=== PATIENT | female | born 1970 | race Caucasian/White ===

== ENCOUNTER → 2018-07-19 | Outpatient (CLI) | payer OTHER ==
--- NOTE | 2018-07-19 11:51 | REPMRS ---
Patient History The patient states she had a clinical breast exam in 06/2018. Family history of ovarian cancer in paternal grandmother. 3D TOMOSYNTHESIS WAS PERFORMED. Digital Woman Screen Mammo: July 19, 2018 - Exam #: [id number] Bilateral CC and MLO view(s) were taken. Technologist: Cecilia Kirk, Technologist Prior study comparison: March 25, 2014, digital woman screen mammo performed at [facility]. June 18, 2011, bilateral bilat screen digital mammo, performed at [facility] ([facility] FINDINGS: The breast tissue is heterogeneously dense. This may lower the sensitivity of mammography. There has been no change in the appearance of the mammogram from the prior studies. There is a moderate amount of residual fibroglandular tissue which is fairly symmetric. There is no interval development of dominant mass, areas of architectural distortion, or clustered microcalcification typical of malignancy. Assessment: BI-RADS/ACR category 1 mammogram. Negative Mammogram. Recommendation Routine screening mammogram in 1 year (for women over age 40). This mammogram was interpreted with the aid of an FDA-approved computer-aided dectection system. Electronically Signed By: Demario Willson MD 07/19/18 [id number]
== END ==
LOC: M WHC 10:01
PROVIDERS: ATTEND Nurse Practitioner Women's Health
DX: Z12.31 Encounter for screening mammogram for malignant neoplasm of breast (principal)

== ENCOUNTER → 2018-07-19 | Outpatient (REF) | payer OTHER ==
[2018-07-21 14:26] LABS: HPV HYBRID CAPTURE II Negative (Negative)
== END ==
LOC: M SFHCWAGY 10:13
PROVIDERS: ATTEND Nurse Practitioner Women's Health
DX: Z12.4 Encounter for screening for malignant neoplasm of cervix (principal)
CPT/HCPCS: 87624; G0123

== ENCOUNTER → 2019-07-23 | Outpatient (CLI) | payer OTHER ==
--- NOTE | 2019-07-23 10:35 | REPMRS ---
Patient History The patient states she had a clinical breast exam in June 2019. Family history of ovarian cancer in paternal grandmother. Digital Woman Screen Mammo: July 23, 2019 - Exam #: [id number] Bilateral CC and MLO view(s) were taken. Technologist: Ela Mathew, Technologist Prior study comparison: July 19, 2018, bilateral digital woman screen mammo performed at [facility]. March 25, 2014, digital woman screen mammo performed at [facility]. June 18, 2011, bilateral bilat screen digital mammo, performed at [facility] ([facility] FINDINGS: There are scattered fibroglandular densities. There is a well circumscribed, 17 mm, nodular opacity in the upper outer quadrant of the right breast on today's mammography which merits further evaluation. This may contain fat suggesting a benign etiology. There has been no other change in the appearance of the mammogram from the prior studies. There is a mild amount of scattered fibroglandular density which is fairly symmetric. There is no other interval development of dominant mass, architectural distortion, or grouped microcalcification suggestive of malignancy. 3-D tomosynthesis shows no additional findings. Assessment: BI-RADS/ACR category 0 mammogram, Incomplete: Need additional imaging evaluation and/or prior mammograms for comparison. Recommendation Ultrasound and special view mammogram of the right breast. This patient's Lifetime Breast Cancer Risk is estimated at 9.0 %. This mammogram was interpreted with the aid of an FDA-approved computer-aided dectection system. Electronically Signed By: Ye Sahni MD 07/23/19 [id number]
== END ==
LOC: M WHC 08:45
PROVIDERS: ATTEND Nurse Practitioner Women's Health
DX: Z12.31 Encounter for screening mammogram for malignant neoplasm of breast (principal); Z80.41 Family history of malignant neoplasm of ovary; N63.11 Unspecified lump in the right breast, upper outer quadrant

== ENCOUNTER → 2019-07-23 | Outpatient (REF) | payer OTHER | LOC: M SFHCWAGY 16:52 | PROVIDERS: ATTEND Nurse Practitioner Women's Health | DX: Z12.4 Encounter for screening for malignant neoplasm of cervix (principal) ==

== ENCOUNTER → 2019-07-24 | Outpatient (CLI) | payer OTHER ==
--- NOTE | 2019-07-24 09:59 | REP ---
DIGITAL DIAGNOSTIC UNILATERAL RIGHT BREAST MAMMOGRAPHY WITH CAD AND FOCUSED RIGHT BREAST SONOGRAPHY: HISTORY: Screening mammography July 23, 2019 showed a nodular density in the upper outer quadrant for which diagnostic imaging was recommended. Comparison is also made with July 19, 2018 and the March 25, 2014 prior mammographic images. MAMMOGRAPHIC FINDINGS: Magnified focal spot compression CC, true mediolateral, and MLO views of the right breast were obtained. These confirm a partially well-circumscribed relatively low attenuation nodule in the upper outer quadrant corresponding to the screening mammographic findings. No other mammographic abnormality. SONOGRAPHIC FINDINGS: Focused right breast scanning in the upper outer quadrant shows a 1.4 x 1.3 x 0.7 cm oval hypoechoic well-circumscribed nodule with its long axis parallel to the skin at the 9-o'clock position, 8 cm from the nipple. There is no observable Doppler flow. There is enhanced through transmission and the margins of the lesion are well defined. It does not meet criteria of a simple cyst. IMPRESSION: BIRADS 4: BI-RADS/ACR category 4 mammogram. Suspicious Abnormality - biopsy should be considered. BIRADS category 4 suspicious findings. Hypoechoic lesion identified sonographically and felt to correspond with the mammographic neodensity. Ultrasound-guided needle biopsy and/or aspiration recommended with marker clip placement and clip placement mammography. This mammogram was interpreted with the aid of an FDA-approved computer-aided detection system. The patient letter being requested is M4 .
== END ==
LOC: M WHC 08:01
PROVIDERS: ATTEND Nurse Practitioner Women's Health
DX: Z12.31 Encounter for screening mammogram for malignant neoplasm of breast (principal)

== ENCOUNTER → 2019-08-08 | Outpatient (CLI) | payer OTHER ==
[~2019-08-08] MED LIST: CETI10CA2 PO; CO Q10CA PO; LEVO75TA4 PO; MULTTAB24 PO; OMEP40CA97 PO; PRED10PA PO; PROP60CA PO
[2019-08-08 15:48] VITALS: BP 120/76
--- NOTE | 2019-08-09 08:13 | REP ---
DIGITAL DIAGNOSTIC UNILATERAL RIGHT BREAST MAMMOGRAPHY WITH CAD: Two views. HISTORY: Marker clip placement views. HISTORY: Right breast mass. Status post ultrasound-guided needle biopsy with clip placement. Comparison mammography July 22 and July 24, 2019. July 19, 2018 mammography is also reviewed. FINDINGS: Craniocaudal and true mediolateral views of the right breast were obtained post biopsy. The marker clip is seen centrally located within the mammographic neodensity in the upper outer quadrant of the right breast. IMPRESSION: Marker clip in good position.
--- NOTE | 2019-08-09 08:54 | REP ---
FOCUSED RIGHT BREAST SONOGRAPHY: HISTORY: Ultrasound guidance. Ultrasound-guided needle biopsy procedure right breast. Comparison sonography July 24, 2019. FINDINGS: Sonographic guidance is provided to Dr. Kumar who performed ultrasound-guided needle biopsy procedure with marker clip placement.
--- NOTE | 2019-08-14 12:38 | ROOPDOC ---
[facility] Report Of Operation Report of Operation DATE OF PROCEDURE: 08/08/19 PREPROCEDURE DIAGNOSES: Right breast mass. POSTPROCEDURE DIAGNOSES: Right breast mass PROCEDURE: Ultrasound-guided biopsy of right breast mass with clip placement. SURGEON: Ken Galan TRANSMISSION BUILDER: ANESTHESIA: Local anesthetic was used. ESTIMATED BLOOD LOSS: Approximately 1 mL. COMPLICATIONS: None. REMARKS: Postbiopsy clips seen in expected position. DESCRIPTION OF PROCEDURE: Lidocaine 1% LOT [id number] Expiration 08/2022 Sodium Bicarbonate 8.4% LOT [id number] Expiration 08/2020 Hydromark clip LOT [id number] Expiration 02/2022 SHAPE 3 Bx device: BARD [id number] x10 cm LOT HUEP 3 1 0 2 Expiration 05/20 Informed consent was obtained. The most common risk and possible complications including bleeding, hematoma, bruising, infection, injury to surrounding structures were explained to the patient and she expressed understanding. Patient was placed on the bed in the supine position. Appropriate time out was done stating patients name, date of , and the procedure to be performed. The right breast was prepped and draped in the usual fashion. The ultrasound was used to confirm the location of the lesion in the right breast at 9:00 8 centimeters from the nipple. Plain Lidocaine 1% and 8.4% sodium bicarbonate 10:1 mix was used to anesthetize the skin, the biopsy site and tissues along the anticipated biopsy tract. Small skin incision was made with blade number 11. BARD Marquee 14G cannula with introducer ([id number]) was inserted through the incision and advanced under the ultrasound guidance to position immediately adjacent to the lesion. Next, the introducer was removed and BARD Marquee 14G biopsy device was places in the cannula. Pre-biopsy imaging, and post-biopsy imaging were captured. Five good core biopsies were taken at various levels of the lesion. Specimen was placed in formaldehyde, labeled with appropriate biopsy site and patients name, and sent to pathology for evaluation. Next, the biopsy device was withdrawn and a clip introducer was inserted into the biopsy site via the cannula. The Hydromark clip was deployed under sonographic guidance. Post-clip placement image was captured. Manual pressure over the biopsy cavity and tract was held after the clip introducer was withdrawn. No bleeding was noted upon removal of the pressure. Post-biopsy mammogram of the right breast was obtained and showed clip in expected position. Postprocedural dressing was placed. Patient tolerated procedure well. Discharge instructions were discussed with the patient and she expressed understanding. KEN GALAN DO August 14, 2019 12:38
== END ==
LOC: M WHCPRO 14:04
PROVIDERS: ATTEND Surgery
DX: N60.11 Diffuse cystic mastopathy of right breast (principal)

== ENCOUNTER → 2020-06-27 | Outpatient (CLI) | payer OTHER ==
--- NOTE | 2020-06-27 09:59 | REP ---
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 COMPARISON: 07/24/2019. TECHNIQUE: Real-time sonographic evaluation of right breast performed. FINDINGS: There is a smoothly marginated oval hypoechoic nodule again noted at the 9 o'clock position of the right breast. An internal biopsy clip is noted. It measures 1.1 x 0.7 x 1.1 cm, previously 1.4 x 0.7 x 1.3 cm. IMPRESSION: BIRADS/ACR category 2, benign. Oval hypoechoic nodule at the 9 o'clock position of the right breast appears to have slightly decreased in size compared to the prior study. RECOMMENDATION: None. <Electronically signed by Demario Willson > 06/27/20 0955
== END ==
LOC: M WHC 07:58
PROVIDERS: ATTEND Surgery
DX: D24.1 Benign neoplasm of right breast (principal)

== ENCOUNTER → 2020-10-07 | Outpatient (CLI) | payer OTHER ==
[~2020-10-07] MED LIST changes: +OMEP40CA4 PO; -OMEP40CA97 PO
== END ==
LOC: M WHC 08:01
PROVIDERS: ATTEND Nurse Practitioner Women's Health
DX: Z12.31 Encounter for screening mammogram for malignant neoplasm of breast (principal); Z12.4 Encounter for screening for malignant neoplasm of cervix; R87.610 Atypical squamous cells of undetermined significance on cytologic smear of cervix (ASC-US); Z80.41 Family history of malignant neoplasm of ovary
CPT/HCPCS: 77063; 77067; 87624; G0123; G0463

== ENCOUNTER → 2020-10-07 | Outpatient (REF) | payer OTHER | LOC: M SFHCWAGY 13:11 | PROVIDERS: ATTEND Nurse Practitioner Women's Health | DX: Z12.4 Encounter for screening for malignant neoplasm of cervix (principal); R87.610 Atypical squamous cells of undetermined significance on cytologic smear of cervix (ASC-US) ==

== ENCOUNTER → 2021-08-31 | Outpatient (CLI) | payer OTHER ==
[2021-08-31 16:18] LABS: ALT/SGPT 42 U/L (12-78); BILIRUBIN,DIRECT 0.2 MG/DL (0.0-0.2); BILIRUBIN,TOTAL 0.6 MG/DL (0.2-1.0); BLOOD UREA NITROGEN 12 MG/DL (7-18); CALCIUM LEVEL 9.8 MG/DL (8.5-10.1); CARBON DIOXIDE LEVEL 28 MEQ/L (21-32); CHLORIDE LEVEL 108 MEQ/L (98-107); CREATININE FOR GFR 0.83 MG/DL (0.55-1.30); GLOMERULAR FILTRATION RATE > 60.0 (>51); GLUCOSE, FASTING 85 MG/DL (70-100); POTASSIUM SERUM 4.4 MEQ/L (3.5-5.1); SODIUM LEVEL 142 MEQ/L (136-145); TOTAL PROTEIN 7.1 GM/DL (6.4-8.2)
== END ==
LOC: M PLALAB 13:30
PROVIDERS: ATTEND Specialist
DX: K76.0 Fatty (change of) liver, not elsewhere classified (principal)
CPT/HCPCS: 36415; 80053; 82248; G0463

== ENCOUNTER → 2023-01-20 | Outpatient (CLI) | payer OTHER | LOC: M PLALAB 15:58 | PROVIDERS: ATTEND Family Medicine | DX: R30.0 Dysuria (principal); R82.90 Unspecified abnormal findings in urine ==

== ENCOUNTER → 2023-01-26 | Outpatient (REF) | payer OTHER | LOC: M LAB REF 09:51 | PROVIDERS: ATTEND Family Medicine | DX: R82.90 Unspecified abnormal findings in urine (principal); R30.0 Dysuria ==

== ENCOUNTER → 2023-02-14 | Outpatient (CLI) | payer OTHER | LOC: M WUC 12:11 | PROVIDERS: ATTEND Nurse Practitioner Family | DX: M54.50 Low back pain, unspecified (principal) ==

== ENCOUNTER → 2023-03-24 | Outpatient (CLI) | payer OTHER | LOC: M RAD 16:08 | PROVIDERS: ATTEND Family Medicine | DX: Z12.2 Encounter for screening for malignant neoplasm of respiratory organs (principal); E04.1 Nontoxic single thyroid nodule; R91.1 Solitary pulmonary nodule; Z87.891 Personal history of nicotine dependence ==

== ENCOUNTER → 2023-05-20 | Outpatient (REF) | payer OTHER | LOC: M LAB REF 11:29 | PROVIDERS: ATTEND Physician Assistant | DX: R30.0 Dysuria (principal) ==

== ENCOUNTER → 2023-08-03 | Outpatient (CLI) | payer OTHER ==
[2023-08-03 07:52] LABS: ALBUMIN 3.7 G/DL (3.2-5.2); ALKALINE PHOSPHATASE 88 U/L (46-116); ALT/SGPT 48 U/L (7.0-40); AST/SGOT 39 U/L (<34); BILIRUBIN,TOTAL 0.6 MG/DL (0.3-1.2); BLOOD UREA NITROGEN 13 MG/DL (9-23); CALCIUM LEVEL 8.8 MG/DL (8.5-10.1); CARBON DIOXIDE LEVEL 26 MMOL/L (20-31); CHLORIDE LEVEL 110 MMOL/L (98-107); CREATININE FOR GFR 0.79 MG/DL (0.55-1.30); GLOMERULAR FILTRATION RATE > 60.0 (>51); GLUCOSE, FASTING 105 MG/DL (60-100); POTASSIUM SERUM 4.1 MMOL/L (3.5-5.1); SODIUM LEVEL 144 MMOL/L (136-145); TOTAL PROTEIN 6.2 G/DL (5.7-8.2)
== END ==
LOC: M RAD 06:40
PROVIDERS: ATTEND Family Medicine
DX: R79.89 Other specified abnormal findings of blood chemistry (principal); Z90.49 Acquired absence of other specified parts of digestive tract; K76.0 Fatty (change of) liver, not elsewhere classified; R16.0 Hepatomegaly, not elsewhere classified

== ENCOUNTER → 2023-12-19 | Outpatient (CLI) | payer OTHER | LOC: M RAD 15:05 | PROVIDERS: ATTEND Internal Medicine | DX: R31.9 Hematuria, unspecified (principal); R10.2 Pelvic and perineal pain; J98.11 Atelectasis; Z90.49 Acquired absence of other specified parts of digestive tract; I70.0 Atherosclerosis of aorta; R16.0 Hepatomegaly, not elsewhere classified; K76.0 Fatty (change of) liver, not elsewhere classified ==

== ENCOUNTER → 2024-03-16 | Outpatient (REF) | payer OTHER ==
[2024-03-16 17:34] LABS: IMMUNOGLOBULIN A 201.5 MG/DL (40-350)
[2024-03-16 17:35] LABS: PERCENT SATURATION 21.7 % (13.2-45.0)
[2024-03-16 17:39] LABS: FERRITIN 98.3 NG/ML (7.3-270.7)
== END ==
LOC: M LAB REF 16:27
PROVIDERS: ATTEND Internal Medicine
DX: R31.9 Hematuria, unspecified (principal); R19.4 Change in bowel habit

== ENCOUNTER → 2024-04-20 | Outpatient (REF) | payer OTHER | LOC: M LAB REF 16:28 | PROVIDERS: ATTEND Nurse Practitioner Family | DX: R30.0 Dysuria (principal) ==

== ENCOUNTER → 2024-08-16 | Outpatient (REF) | payer OTHER | LOC: M LAB REF 17:40 | PROVIDERS: ATTEND Internal Medicine | DX: M25.50 Pain in unspecified joint (principal) ==

== ENCOUNTER → 2024-10-15 | Outpatient (CLI) | payer OTHER | LOC: M RAD 06:23 | PROVIDERS: ATTEND Internal Medicine | DX: K76.0 Fatty (change of) liver, not elsewhere classified (principal); R16.0 Hepatomegaly, not elsewhere classified ==

== ENCOUNTER → 2024-11-05 | Outpatient (CLI) | payer OTHER | LOC: M WUC 09:00 | PROVIDERS: ATTEND Registered Nurse | DX: J20.9 Acute bronchitis, unspecified (principal) ==